=== PATIENT | female | born 1975 | race Caucasian/White ===

== ENCOUNTER 2025-03-11 11:28 | Inpatient (IN) | payer OTHER ==
[~2025-03-11] VITALS: Ht 157.5 cm; Wt 100.2 kg
--- NOTE | 2025-03-11 12:02 | RADIOLOGY REPORT ---
CHEST RADIOGRAPH Indication: CELLULITIS Technique: Single frontal view of the chest was obtained Comparison: None FINDINGS: Lines and Tubes: None Lungs: No focal consolidation. Pleura: No effusion. No pneumothorax. Cardiomediastinal contours: Unremarkable Bones: No acute osseous abnormality. IMPRESSION: No acute cardiopulmonary disease.
[2025-03-11 12:22] LABS: MEAN PLATELET VOLUME 7.5 FL (7.4-10.4); RED CELL DISTRIBUTION WIDTH 16.0 % (11.5-14.5)
[2025-03-11 12:23] LABS: LEUKOCYTE ESTERASE ,URINE NEGATIVE (Neg); NITRITES, URINE NEGATIVE (Neg); OCCULT BLOOD,URINE NEGATIVE (Neg)
[2025-03-11 12:27] LABS: UA COLLECTION TYPE CLN CATCH MIDSTREAM
[2025-03-11 12:29] LABS: SQUAMOUS EPITHELIAL CELL,UR NONE SEEN /LPF (FEW)
[2025-03-11 12:38] LABS: CREATININE 1.06 MG/DL (0.40-0.90); PRO BRAIN NATRIURETIC PEPTIDE 196 PG/ML (0-125); TOTAL CARBON DIOXIDE 22.8 MMOL/L (24-32); eCRCL 50 ML/MIN; eGFR 55 ML/MIN
[2025-03-11] MEDS: normal saline 1000ML IV soln IVB ONE (14:18)
--- NOTE | 2025-03-11 14:56 | Physician Documentation ---
History of Present Illness ~ Chief Complaint: Wound Stated Complaint: ANKLE/HIP PAIN Time Seen by MD: 13:27 Mode of Arrival: POV HPI THIS 49-YEAR-OLD FEMALE PRESENTS TO THE ED WITH A COMPLAINT OF LOWER EXTREMITY PAIN, SWELLING AND DEVELOPING INFECTION. THIS IS DEVELOPED OVER THE LAST 2-3 DAYS. SHE STATES THAT SHE DOES HAVE CATS AT HOME BUT IS CERTAIN BUT HER CAT DID NOT SCRATCH HER LOWER EXTREMITY. THIS IS CONCERNING SHE HAS DEVELOPED SOME SMALL ULCERATIONS ON HER RIGHT LOWER EXTREMITY. PATIENT STATES SHE HAS NOT BEEN DIAGNOSED WITH DIABETES AT THIS POINT. SHE SAYS SHE HAS ALWAYS BEEN BORDERLINE. Day of Onset of Wound: Mar 11, 2025 Tetanus within 5 years?: Yes Medication Reconciliation Allergies: Coded Allergies: Penicillins (Verified Allergy, Unknown, RASH, 03/11/25) "RASH ALL OVER LOWER BODY" HAPPENED IN HER 20S Review of Systems All Other Systems at this time: Reviewed and Negative ROS As stated above in the HPI, otherwise all systems are reviewed and negative. Physical Exam Vital Signs: Temperature: 97.4, Source: Temporal, Heart Rate: 66, Respiratory Rate: 15, BP: 160/85, Pulse Oximetry: 95, Weight: 100.250 Physical Exam General: Alert, no apparent distress. HEENT: PERRL, EOMI, no injection, moist mucous membranes. Extremities: Normal range of motion, no deformity. ERYTHEMA SMALL ULCERATIONS WITH RAISED PURULENT SORE PROXIMAL TO ANKLE Neurologic: Oriented x4. Psychiatric: Normal mood and affect. Skin: Normal color, warm and dry. No edema, no ecchymosis. Progress Results/Orders Results/Orders Orders - VINNY WARD CLASSIFICATION CASE MANAGER Culture Blood (03/11/25 11:37) Chest,Single View (03/11/25 11:37) Monitor (03/11/25 11:37) Saline Lock (03/11/25 11:37) Page Hospitalist (03/11/25 ) General Nursing Order (03/11/25 ) Completed Orders - VINNY WARD CLASSIFICATION CASE MANAGER Cbc/Diff (03/11/25 11:37) Chest,Single View (03/11/25 11:37) Procalcitonin (03/11/25 11:37) BMP (03/11/25 11:37) Lacticsepsis (03/11/25 11:37) PBNP (03/11/25 11:37) Ua W/Microscopic, Cult If Ind (03/11/25 11:39) Hgb A1c (03/11/25 11:59) Piperacillin/Tazo 4.5gm/100ml (Zosyn 4.5 (03/11/25 14:10) Vancomycin*Pharmacy To Dose* (Vancomycin (03/11/25 14:10) Normal Saline 1000ml (Sodium Chloride 10 (03/11/25 14:10) Vancomycin/H2o 1.75g/350ml Pb (Vancomyci (03/11/25 14:40) Lactic,2hr (03/11/25 15:00) Medications Received in ER Medications (Trade) Dose Ordered Sig/Berto Route PRN Reason Start Time Stop Time Status Last Admin Dose Admin Piperacillin/ Tazobactam/ Dextrose 100 ml @ 25 mls/hr Q12H IV 03/11/25 14:10 03/11/25 15:33 DC 03/11/25 15:04 25 MLS/HR (sodium chloride 1000ml IV soln) 2,000 ml ONCE ONCE IVB 03/11/25 14:10 03/11/25 14:13 DC 03/11/25 14:18 2,000 ML Vancomycin HCl 350 ml @ 117 mls/hr ONCE ONCE IV 03/11/25 14:40 03/11/25 17:39 DC 03/11/25 15:05 117 MLS/HR Sodium Chloride 1,000 ml @ 100 mls/hr Q10H IV 03/11/25 15:25 03/11/25 15:56 100 MLS/HR Vital Signs 03/11/25 03/11/25 03/11/25 03/11/25 11:30 13:14 13:31 14:00 Temp 97.4 97.4 Pulse 108 66 65 Resp 15 16 15 12 B/P (MAP) 198/122 160/85 (110) 152/84 (106) Pulse Ox 98 95 95 03/11/25 15:00 Pulse 82 Resp 21 B/P (MAP) 168/100 (122) Pulse Ox 97 Laboratory Tests Test 03/11/25 11:39 03/11/25 11:53 03/11/25 11:59 03/11/25 15:29 Urine Specimen Description Cln catch midstream Urine Color Yellow Urine Clarity Clear Urine pH 6.0 Urine Specific [place] 1.015 Urine Protein Negative Urine Glucose (UA) >=1000 H Urine Ketones Trace H Urine Occult Blood Negative Urine Nitrite Negative Urine Bilirubin Negative Urine Urobilinogen 0.2 Urine Leukocyte Esterase Negative Urine RBC None seen Urine WBC 0-4 Urine Squamous Epithelial Cells None seen Urine Bacteria None seen Urine Culture Indicated Not ind Volume Urine Centrifuged 10 ml Urine Comment Lactic Acid Level 4.1 *H 2.9 H White Blood Count 13.3 H Red Blood Count 5.12 Hemoglobin 15.8 Hematocrit 46.0 H Mean Corpuscular Volume 89.9 Mean Corpuscular Hemoglobin 30.8 Mean Corpuscular Hemoglobin Concent 34.3 Red Cell Distribution Width 16.0 H Platelet Count 327 Mean Platelet Volume 7.5 Neutrophils (%) (Auto) 90.6 H Lymphocytes (%) (Auto) 7.2 L Monocytes (%) (Auto) 1.7 L Eosinophils (%) (Auto) 0.2 Basophils (%) (Auto) 0.3 Neutrophils # (Auto) 12.1 H Lymphocytes # (Auto) 1.0 L Monocytes # (Auto) 0.2 Eosinophils # (Auto) 0.0 Basophils # (Auto) 0.0 CBC Comment Sodium Level 137 Potassium Level 4.2 Chloride Level 98 L Carbon Dioxide Level 22.8 L Anion Gap 16 Blood Urea Nitrogen 24 H Creatinine 1.06 H Estimated GFR/1.73 m2 55 BUN/Creatinine Ratio 22.6 H Glucose Level 324 H Hemoglobin A1c 7.9 H Calcium Level 9.6 Pro-B-Type Natriuretic Peptide 196 H Albumin 4.2 Procalcitonin < 0.05 Chemistry Comments Microbiology Date/Time Source Procedure Growth Status 03/11/25 11:59 Blood Arm Right Blood Culture - Preliminary NEGATIVE (LESS THAN 24 HOURS) Resulted Medical Decision Making Findings THIS PATIENT IS LABORATORY VALUES INDICATE UNDIAGNOSED UNCONTROLLED DIABETES COMBINED WITH A DEVELOPING INFECTION. THIS CORRELATES CLINICALLY WITH HER SYMPTOMS. IN ADDITION PATIENT PRESENTED WITH DEHYDRATION EVIDENCED BY HER LACTIC VALUE OVER 4 I GAVE HER A FLUID BOLUS STARTED HER ON IV ANTIBIOTICS AND I AM GOING TO REQUEST HOSPITAL ADMISSION. Differential Dx:Considerations: Include: Abscess, Cellulitis, Dressing change, Healing wound, Other Departure Disposition: ADMITTED INPATIENT Impression: Primary Impression: Wound Additional Impressions: Wound cellulitis Type 2 diabetes mellitus Condition: Stable Discharge Instructions: Skin Abscess Referrals: NO PRIMARY CARE PROVIDER (PCP) Education Educated: Patient Educated regarding: diagnosis Signature Scribe Signature: c Attestation: Scribed for Vinny Ward Np by Vinny Vo NP . 03/11/25 18:23 VINNY WARD NP Mar 11, 2025 14:56
[2025-03-11] MEDS: piperacillin/tazo 4.5gm/100ml 100 ML IV SCH (15:04)
[2025-03-11] MEDS: VANCOMYCIN 1.75GM/WATER FOR INJ (PEG) 350 ML IVPB IV ONE (15:05)
[2025-03-11] MEDS ORDERED: mag hydrox/Alum hydrox/simeth 30ml oral suspension PO PRN (15:25)
[2025-03-11] MEDS ORDERED: magnesium sulf-water 2g/50mL 50 ML IV PRN (15:25)
[2025-03-11] MEDS ORDERED: HYDROcodone/acetaminophen 5mg/325mg tablet PO PRN (15:25)
[2025-03-11] MEDS ORDERED: magnesium Cl slow-release 64mg tablet PO PRN (15:25)
[2025-03-11] MEDS ORDERED: potassium Cl 40MEQ/1/2NS 520ml 520 ML IV PRN (15:25)
[2025-03-11] MEDS ORDERED: potassium Cl 20 mEq SR tablet PO PRN ×2 (15:25)
[2025-03-11] MEDS ORDERED: ondansetron/PF 4mg/2ml inj IV PRN (15:25)
[2025-03-11] MEDS ORDERED: magnesium sulf-water 4G/100mL 100 ML IV PRN (15:25)
[2025-03-11] MEDS ORDERED: glucagon, human recombinant 1mg kit SUBCUT PRN (15:35)
[2025-03-11] MEDS ORDERED: DEXTROSE 15 GM of carb/4 tabs (each vial/BOTTLE has 4 tablets) PO PRN ×2 (15:35)
[2025-03-11] MEDS ORDERED: dextrose 50%-water 50ml dispensing syringe IV PRN ×2 (15:35)
[2025-03-11] MEDS: normal saline 1000ml 1,000 ML IV SCH (15:56)
[2025-03-11] MEDS ORDERED: INSULIN LISPRO 100 UNIT/ML INSULN.PEN MULTI-DOSE SQ SCH ×2 (17:00→18:00)
--- NOTE | 2025-03-11 17:03 | HISTORY AND PHYSICAL-Residence ---
History & Physical Providers to CC Resident Creating Document: ROCÍO ROSADO, RES ~ History of Present Illness Primary Medical Doctor: Marie Díaz SOCIAL WORK ADMINISTRATOR in [place]. Reason for Admit\\Complaint: Bilateral lower extremity swelling and burning. History of Present Illness PCP: Marie Díaz SOCIAL WORK ADMINISTRATOR in [place]. Apron Cleaner: Dr. Wesley De La Cruz. First appointment in July. 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 The patient states that his tried lower extremity started swelling last which has been getting worse until today. Describing a burning sensation and tightness, 7/10 in intensity, without radiation. Last night the patient states that also her left lower extremity started having mild redness and warm sensation. The patient state that last Tuesday at the level of the right ankle she started noticing a whitish blister which she decided to clean and after that she applied triple antibiotic ointment for one time the night. Since yesterday she experienced this redness at the other lower extremity and after evidencing this blister on Tuesday she noticed that other to blisters started developing at the level of the right ankle reason for which she decided to come to the hospital. The patient currently denies any chest pain, shortness of breath, palpitations, urinary or intestinal symptoms Allergies: Coded Allergies: Penicillins (Verified Allergy, Unknown, RASH, 03/11/25) "RASH ALL OVER LOWER BODY" HAPPENED IN HER 20S Past Medical History Past Medical History Panic attack for which she takes Xanax 25 mg as needed. 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 Hypertension taking hydrochlorothiazide 25 mg daily. Chronic hip pain for which she was taking meloxicam 7.5 mg two tablets per day. Prednisolone 40 mg daily since October,. Taking tramadol 50 mg two tablets per day. Chronic back pain: Taking methocarbamol 750 mg three tablets per day. Gabapentin. She endorses weight gain since October, taking now semaglutide 2.5 mg. Depression taking sertraline 50 mg at night. Past Surgical History Surgical History Comment Tonsillectomy. in 1996. Bilateral carpal tunnel surgery. Tonsillectomy. 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 HEENT: Conjunctive are pink, sclerae clear, no icterus, pupil is equal in both sides, reactive to light, no ear discharge, no pharyngeal erythema or an edema. Neck: Supple, no JVD, no lymphadenopathy and thyromegaly. Chest: Equal air entry on both lungs, no additional sounds no rhonchi no wheezing at the moment. Cardiovascular: S1-S2 regular sinus rhythm and, regular rate, no gallops, no rubs, no murmurs Abdomen: No visible peristalsis, Bowel sounds present on auscultation, soft, nontender, no guarding, no rigidity Extremities: No obvious deformities, 1+ pedal edema bilaterally, capillary refill intact, peripheral pulsations are intact on both sides. Presence of redness and three blisters in the level of the right lower extremity. Warm to palpation. Mild redness in the left ankle. Central Nervous System: No focal neurological deficits, no motor or sensory weakness in all 4 extremities, could move all 4 extremities, 2+ deep tendon reflexes, negative Babinski. Musculoskeletal: No joint swelling, deformities, inflammations, and no scoliosis and back tenderness, Mild redness in the left ankle. Skin: Warm and dry. Presence of redness and three blisters in the level of the right lower extremity. Warm to palpation. Diagnostic Data Last Recorded Lab Results: 03/11/25 1159 03/11/25 1159 Counseling Services Smoking & Tobacco Cessation: 3-10 Minutes (I spent 12 minutes discussing smoking cessation with the patient including the risk of continuing to smoke: Lung cancer, stroke, heart attack, poor wound healing, increased in fascial wrinkling, cigarette smoke also leads a foul smell on clothing and fabrics, risk of MRSA skin infections. The expense of smoking cigarettes and how cigarettes have been scientifically engineered to be as addictive as humanly possible. The patient requested nicotine patch.) Advance Care Planning Advanced Care plannin - 30 Minutes (I spent a total of 17 minutes on reviewing various resuscitative measures/ACP with the patient at the time of admission. The patient has decided on a full code status.) Additional Plan Assessment and plan: 49-year-old female patient came to the hospital with chief complaint of bilateral ankle swelling mostly in the right side and presence of whitish pustules. Sepsis secondary to Right lower extremity cellulitis: Sepsis criteria: (HR 108, WBC> 12, presence of source of infection): The patient came to the hospital with chief complaint of bilateral ankle swelling mostly in the right side, presence of whitish blisters in the level of the right ankle. Follow-up ESR, CRP, procalcitonin. Follow-up blood culture. Currently on vancomycin pharmacy to dose. Culturelle 01956 mmu bid. Diabetes mellitus: Hemoglobin A1c 7.9. Glucose levels 324. Hyperglycemia/hypoglycemia protocol in place. On insulin glargine 20 units HS. Medium dose sliding scale short-acting insulin. Possible acute kidney injury likely secondary to vasomotor nephropathy: Creatinine 1.06, GFR 55, BUN/creatinine ratio 22.6. Follow-up urine lytes. On NS at 100 mL/hour. Chronic lumbar back pain: Chronic hip pain: Follow-up x-ray of the hip. Pain control with acetaminophen and [place]. Hypothyroidism: Jamila's disease. Follow-up TSH. Continue Synthroid 137 mcg daily. Code status: Full code DVT prophylaxis: Heparin 5000 units b.i.d. Analgesia/sedation: Acetaminophen/[place]. Line/tube: PIV GI prophylaxis: Protonix Nutrition: 75 carb controlled diet. PT: Ordered Prognosis: Guarded Disposition: The patient will be admitted to ortho floor. Rocío Plascencia Internal Medicine Resident [facility] Date of Service: Mar 11, 2025 Billing Provider: AVINASH ALEJO MD Common Visit Codes: [id number] INP/OBS CARE (HIGH) Secondary Visit Codes: 07851-[id number] CARE PLAN 30 MINUTES ROCÍO ROSADO, RES Mar 11, 2025 17:03 AVINASH ALEJO MD Mar 12, 2025 14:05
[2025-03-11] MEDS: nicotine 14mg patch - 24hr TD SCH (17:50)
[2025-03-11] MEDS ORDERED: POTA-366 PO (18:25)
[2025-03-11] MEDS ORDERED: SERT-433 PO (18:25)
[2025-03-11] MEDS ORDERED: METH-798 PO (18:25)
[2025-03-11] MEDS ORDERED: HYDR25TA4 PO (18:25)
[2025-03-11] MEDS ORDERED: vit D (18:25)
[2025-03-11] MEDS ORDERED: TRAM50TA2 PO (18:25)
[2025-03-11] MEDS ORDERED: MELO-100 PO (18:25)
[2025-03-11] MEDS ORDERED: VIT B COMPLEX (18:25)
[2025-03-11] MEDS ORDERED: GABA-530 PO (18:25)
[2025-03-11] MEDS ORDERED: PRED10TA PO (18:25)
[2025-03-11] MEDS ORDERED: LEVO137T24 PO (18:25)
[2025-03-11] MEDS ORDERED: turmeric (18:25)
[2025-03-11] MEDS ORDERED: magnesium (18:25)
--- NOTE | 2025-03-11 18:53 | VASCULAR REPORT ---
Technique: Real-time ultrasound imaging, with color Doppler and compression of the right common femo ral vein, femoral vein, greater saphenous vein, and popliteal vein. Indication: Swelling Comparison: None Findings: Technically limited examination due to habitus. There is normal compressibility and flow augmentation in all of the imaged deep veins. There are no f illing defects. Impression: Technically limited examination due to habitus. Within the limitations: No evidence of DVT in the right lower extremity
[2025-03-11 19:09] LABS: OSMOLALITY 300.0 MOSM/K (280-300)
[2025-03-11 19:20] VITALS: BP 142/77; PULSE 80; RESP 16; TEMP 97.9; O2SAT 97
[2025-03-11] MEDS: K and/or MAG REPLACEMENT MC SCH (20:00)
[2025-03-11] MEDS: insulin glargine (Lantus) pen - multi-dose SQ SCH (21:28)
[2025-03-11] MEDS: lactobacillus rhamnosus 10,000 MMU CELLS/CAPSULE PO SCH (21:47)
[2025-03-11] MEDS: heparin, porcine 5000 units/ml vial SQ SCH (21:47)
[2025-03-11] MEDS: INSULIN LISPRO 100 UNIT/ML INSULN.PEN MULTI-DOSE SQ SCH (21:57)
[2025-03-11 22:00] VITALS: BP 145/67; PULSE 77; RESP 16; TEMP 97.6; O2SAT 95
[2025-03-11] MEDS: HYDROcodone/acetaminophen 10/325mg tab PO PRN (23:09)
--- NOTE | 2025-03-12 01:25 | RADIOLOGY REPORT ---
CLINICAL INDICATION: RIGHT HIP PAIN TECHNIQUE: DI HIP UNILATERAL 2 VIEWS Comparison: None FINDINGS/IMPRESSION: : There is no evidence of acute fracture or dislocation. Soft tissues are unremarkable.
[2025-03-12] MEDS: VANCOmycin 1250MG/NS 250ml Bag 250 ML IV SCH (03:25)
[2025-03-12 05:40] LABS: MEAN PLATELET VOLUME 7.5 FL (7.4-10.4); RED CELL DISTRIBUTION WIDTH 16.2 % (11.5-14.5)
[2025-03-12 05:56] LABS: CREATININE 1.00 MG/DL (0.40-0.90); PHOSPHORUS 3.5 MG/DL (2.3-4.5); TOTAL CARBON DIOXIDE 22.6 MMOL/L (24-32); eCRCL 53 ML/MIN; eGFR 59 ML/MIN
[2025-03-12 06:00] VITALS: BP 113/62; PULSE 67; RESP 18; TEMP 96.7; O2SAT 97
[2025-03-12 06:36] LABS: INR 1.0 INR
[2025-03-12] MEDS: pantoprazole 40mg Tablet.DR PO SCH (07:33)
[2025-03-12 07:34] VITALS: BP 131/70; PULSE 62
[2025-03-12 10:00] VITALS: BP 106/68; PULSE 76; RESP 19; TEMP 98.4; O2SAT 97
[2025-03-12] MEDS: Methocarbamol 750 MG TABLET PO SCH (13:00)
--- NOTE | 2025-03-12 17:50 | PROGRESS NOTE- Residence ---
Progress Note - Resident Providers to CC Resident Creating Document: KHOA DONG RES ~ Antibiotic Timeout Antibiotic Ordered?: Yes Subjective Patient was seen and examined at the bedside today. Right leg is wrapped in dressing. Recommended to her to continue to follow up with her primary care regarding her prednisolone dosage. Also recommended to continued follow up with time clock inspector. She continues to feel better. Objective Vital Signs Date Time Temp Pulse Resp B/P (MAP) Pulse Ox O2 Delivery O2 Flow Rate FiO2 03/12/25 15:21 75 03/12/25 10:00 98.4 19 106/68 (81) 97 Room Air Result Diagram: 03/12/25 0448 03/12/25 0448 General: Well alert, well oriented, not confused, not agitated, not in acute distress, well cooperated during the physical. HEENT: Conjunctive are pink, sclerae clear, no icterus, pupil is equal in both sides, reactive to light, no ear discharge, no pharyngeal erythema or an edema. Neck: Supple, no JVD, no lymphadenopathy and thyromegaly. Chest: Equal air entry on both lungs, no additional sounds no rhonchi no wheezing at the moment. Cardiovascular: S1-S2 regular sinus rhythm and, regular rate, no gallops, no rubs, no murmurs Abdomen: No visible peristalsis, Bowel sounds present on auscultation, soft, nontender, no guarding, no rigidity Extremities: No obvious deformities, 1+ pedal edema bilaterally, capillary refill intact, peripheral pulsations are intact on both sides. Presence of redness and three blisters in the level of the right lower extremity. Warm to palpation. Mild redness in the left ankle. Central Nervous System: No focal neurological deficits, no motor or sensory weakness in all 4 extremities, could move all 4 extremities, 2+ deep tendon reflexes, negative Babinski. Musculoskeletal: No joint swelling, deformities, inflammations, and no scoliosis and back tenderness, Mild redness in the left ankle. Skin: Warm and dry. Presence of redness and three blisters in the level of the right lower extremity. Warm to palpation. Coagulation Studies Laboratory Tests Test 03/12/25 04:48 Prothrombin Time 10.5 SECONDS (9.0-12.0) INR International Normalized Ratio 1.0 INR Coagulation Comments Plan Plan 49-year-old female patient came to the hospital with chief complaint of bilateral ankle swelling mostly in the right side and presence of whitish pustules. Sepsis secondary to Right lower extremity cellulitis: Sepsis criteria: (HR 108, WBC> 12, presence of source of infection): The patient came to the hospital with chief complaint of bilateral ankle swelling mostly in the right side, presence of whitish blisters in the level of the right ankle. Follow-up ESR, CRP, procalcitonin. Follow-up blood culture. Currently on vancomycin pharmacy to dose. Culturelle 13096 mmu bid. 03/12/2025 Antibiotic changed doxycycline. WBC count trending high up to 16.9 likely secondary to prednisolone. Lactic acid trended down. Decreased the dosage of prednisolone to 20 mg. Diabetes mellitus: Hemoglobin A1c 7.9. Glucose levels 324. Hyperglycemia/hypoglycemia protocol in place. On insulin glargine 20 units HS. Medium dose sliding scale short-acting insulin. 03/12/2025 Patient is a new diabetic, will be discharged home on metformin. Possible acute kidney injury likely secondary to vasomotor nephropathy: Creatinine 1.06, GFR 55, BUN/creatinine ratio 22.6. Follow-up urine lytes. On NS at 100 mL/hour. 03/12/2025-creatinine improving Chronic lumbar back pain: Chronic hip pain: Follow-up x-ray of the hip. Pain control with acetaminophen and [place]. 03/12/2025-hip x-ray shows no acute fractures. Hypothyroidism: Jamila's disease. Follow-up TSH. Continue Synthroid 137 mcg daily. Code status: Full code DVT prophylaxis: Heparin 5000 units b.i.d. Analgesia/sedation: Acetaminophen/[place]. Line/tube: PIV GI prophylaxis: Protonix Nutrition: 75 carb controlled diet. PT: Ordered Prognosis: Guarded Disposition: Patient is doing fine, possible discharge tomorrow with oral antibiotics. Khoa Dong M.D PGY2 Date of Service: Mar 12, 2025 Billing Provider: AVINASH ALEJO MD Common Visit Codes: [id number] INP/OBS CARE(HIGH) KHOA DONG, RES Mar 12, 2025 17:50 AVINASH ALEJO MD Mar 13, 2025 17:39
[2025-03-12] MEDS: doxycycline 100mg/NS 100mL PB 100 ML IV SCH (20:07)
[2025-03-13] MEDS ORDERED: VANCOMYCIN LEVEL IV ONE (03:00)
[2025-03-13 06:00] VITALS: BP 135/77; PULSE 76; RESP 15; TEMP 96.9; O2SAT 98
[2025-03-13 06:08] LABS: MEAN PLATELET VOLUME 7.4 FL (7.4-10.4); RED CELL DISTRIBUTION WIDTH 16.4 % (11.5-14.5)
[2025-03-13 06:40] LABS: CREATININE 0.79 MG/DL (0.40-0.90); PHOSPHORUS 4.0 MG/DL (2.3-4.5); TOTAL CARBON DIOXIDE 28.2 MMOL/L (24-32); eCRCL 67 ML/MIN; eGFR 77 ML/MIN
[2025-03-13] MEDS: levoTHYROXINE 25mcg tablet PO SCH (07:32)
[2025-03-13] MEDS: levoTHYROXINE 112mcg tablet PO SCH (07:32)
[2025-03-13] MEDS: potassium Cl 20 mEq SR tablet PO SCH (07:39)
[2025-03-13] MEDS ORDERED: PRED10TA PO (09:35)
[2025-03-13] MEDS ORDERED: DOXY-243 PO (09:35)
[2025-03-13 10:00] VITALS: BP 123/69; PULSE 77; RESP 18; TEMP 96.6; O2SAT 99
[2025-03-13] MEDS ORDERED: METF-1203 PO (10:55)
--- NOTE | 2025-03-13 16:08 | DISCHARGE SUMMARY-Residence ---
Discharge Summary Providers to Resident Creating Document: KHOA BARRAZA, ROXY ~ Discharge Summary Admission Diagnosis: CELLULITIS Hospital Course DATE OF ADMISSION: 03/11/2025 DATE OF DISCHARGE: 03/13/25 Labs at the time of discharge WBC 11.5 Hemoglobin 13.7 Sodium 145 Potassium 4.0 Creatinine 0.79 BUN 15 Vascular ultrasound No evidence of DVT in the right lower extremity Hip x-ray There is no evidence of acute fracture or dislocation. Soft tissues are unremarkable. Discharge Diagnosis\Comment: Sepsis secondary to right lower extremity cellulitis Diabetes mellitus JESSY secondary to vasomotor nephropathy Chronic lumbar back pain Hypothyroidism Operations\Procedures: None Consultants: None Complications: None Condition on DC: Stable New Medications: Doxycycline Hyclate (Doxycycline Hyclate) 100 Mg Tablet.dr 100 MG PO BID for 7 Days, #14 TAB Metformin HCl (Metformin HCl) 500 Mg Tablet 1 TAB PO BID for 30 Days, #60 TAB Prednisone (Prednisone) 10 Mg Tablet 20 MG PO DAILY for 14 Days, #28 TAB Continued Medications: Gabapentin (Gabapentin) 100 Mg Capsule 1 CAP PO TID Hydrochlorothiazide (Hydrochlorothiazide) 25 Mg Tablet 1 TAB PO DAILY Levothyroxine Sodium (Synthroid) 137 Mcg Tablet 1 TAB PO DAILY [magnesium] () Meloxicam* (Meloxicam*) 7.5 Mg Tablet 1 TAB PO BID Methocarbamol (Methocarbamol) 750 Mg Tablet 1 TAB PO TID Potassium Chloride (Potassium Chloride) 20 Meq Tablet.er 1 TAB PO DAILY Sertraline HCl (Sertraline HCl) 50 Mg Tablet 1 TAB PO DAILY Tramadol Hcl (Tramadol Hcl) 50 Mg Tablet 1 TAB PO BID PRN for pain [turmeric] () [vit B complex] () [vit D] () Discontinued Medications: Prednisone (Prednisone) 10 Mg Tablet 40 MG PO DAILY Discharge Summary: 49 years old female patient with past medical history of panic attack, Jamila's disease, diabetes mellitus, chronic hip pain, came to the hospital with chief complaint of bilateral lower extremity swelling and burning. She also mentioned that her left lower extremity started having mild redness and warm sensation. She also noticed a whitish blisters on the right lower extremity. She denied any fever. She had positive SIRS criteria with tachycardia and WBC>12. She was started on vancomycin. Blood cultures negative Later antibiotic changed to doxycycline. Also had mild JESSY secondary to vasomotor nephropathy, improved with IV fluids. A1c was 7.9, placed on Lantus 20 units, insulin protocol. Complained of clonic hip pain, x-ray of the hip was done which showed no acute fractures. Continued home medication Synthroid for hypothyroidism. Patient is stable enough to be discharged. At the time of discharge had the following physical examination findings General: Well alert, well oriented, not confused, not agitated, not in acute distress, well cooperated during the physical. HEENT: Conjunctive are pink, sclerae clear, no icterus, pupil is equal in both sides, reactive to light, no ear discharge, no pharyngeal erythema or an edema. Neck: Supple, no JVD, no lymphadenopathy and thyromegaly. Chest: Equal air entry on both lungs, no additional sounds no rhonchi no wheezing at the moment. Cardiovascular: S1-S2 regular sinus rhythm and, regular rate, no gallops, no rubs, no murmurs Abdomen: No visible peristalsis, Bowel sounds present on auscultation, soft, nontender, no guarding, no rigidity Extremities: No obvious deformities, 1+ pedal edema bilaterally, capillary refill intact, peripheral pulsations are intact on both sides. Presence of redness and three blisters in the level of the right lower extremity. Warm to palpation. Mild redness in the left ankle. Central Nervous System: No focal neurological deficits, no motor or sensory weakness in all 4 extremities, could move all 4 extremities, 2+ deep tendon reflexes, negative Babinski. Musculoskeletal: No joint swelling, deformities, inflammations, and no scoliosis and back tenderness, Mild redness in the left ankle. Skin: Warm and dry. Wound dressing done on right lower extremity. Follow up with PCP in 2 weeks. Discuss about diabetes and prednisone dosage with primary care. Continue to monitor blood pressure. Continue wound care of right leg Call 911 or return to ER in case of increase pain, fever or pus discharge *Problems/Diagnosis: (1) Type 2 diabetes mellitus Status: Acute (2) Wound cellulitis Status: Acute Total Time Spent on D/C: Up to 30 Minutes Date of Service: Mar 13, 2025 Billing Provider: AVINASH ALEJO MD Common Visit Codes: [id number] DISCH DAY >30min KHOA BARRAZA, RES Mar 13, 2025 15:48 AVINASH ALEJO MD Mar 13, 2025 17:40
== END 2025-03-13 11:40 | disposition home or self-care (01) | DRG 871 ==
LOC: ER 11:29 → ED HOLD 15:31 → ORTHO 4S 19:02
PROVIDERS: ADMIT Internal Medicine; ATTEND Internal Medicine
DX: A41.9 Sepsis, unspecified organism (principal); N17.0 Acute kidney failure with tubular necrosis; L03.115 Cellulitis of right lower limb; E11.9 Type 2 diabetes mellitus without complications; I10 Essential (primary) hypertension; E03.9 Hypothyroidism, unspecified; G89.29 Other chronic pain; M54.59 Other low back pain; S81.801A Unspecified open wound, right lower leg, initial encounter; X58.XXXA Exposure to other specified factors, initial encounter; Z88.0 Allergy status to penicillin; Y93.89 Activity, other specified; Y92.89 Other specified places as the place of occurrence of the external cause; Y99.8 Other external cause status
CPT/HCPCS: 36415; 71045; 73502; 80048; 81001; 82948; 83036; 83605; 83735; 83880; 83930; 84100; 84145; 84443; 85025; 85610; 85651; 86140; 87040; 87081; 93971; 96365; 97161; 97530; 99285; A4421; A6196; A6260; A6446; A6449; G0378; J1200; J1271; J1644; J1815; J2543; J3370; J3372; J7030; J7512

== ENCOUNTER 2025-04-18 15:54 | Emergency (ER) | payer OTHER ==
[~2025-04-18] VITALS: Ht 152.4 cm; Wt 113.6 kg
[~2025-04-18 15:54] MED LIST: GABA-530 PO; HYDR25TA4 PO; LEVO137T24 PO; MELO-100 PO; METH-798 PO; POTA-366 PO; PRED10TA PO; SERT-433 PO; TRAM50TA2 PO; VIT B COMPLEX; magnesium; turmeric; vit D
--- NOTE | 2025-04-18 18:05 | Physician Documentation ---
History of Present Illness ~ Chief Complaint: Hip pain Stated Complaint: "CAN'T WALK" Time Seen by MD: 00:16 Primary Medical Doctor: Marie Díaz SENIOR MARKETING ENGINEER in [place]. HPI Patient is a 49-year-old female that reports to the emergency department for evaluation of chronic right-sided hip pain. Patient denies any injury reports a hip pain means become progressive over the last several weeks. Patient reports sharp pain into her right hip. denies any red flag symptoms including numbness tingling saddle anesthesia or fevers Medication Reconciliation Allergies: Coded Allergies: Penicillins (Verified Allergy, Unknown, RASH, 04/18/25) "RASH ALL OVER LOWER BODY" HAPPENED IN HER 20S Scheduled Gabapentin (Gabapentin), 1 CAP PO TID, (Reported) Gabapentin (Neurontin), 1 CAP PO Q8H Hydrochlorothiazide (Hydrochlorothiazide), 1 TAB PO DAILY, (Reported) Levothyroxine Sodium (Synthroid), 1 TAB PO DAILY, (Reported) Meloxicam* (Meloxicam*), 1 TAB PO BID, (Reported) Methocarbamol (Methocarbamol), 1 TAB PO TID, (Reported) Potassium Chloride (Potassium Chloride), 1 TAB PO DAILY, (Reported) Prednisone (Prednisone), 20 MG PO DAILY Sertraline HCl (Sertraline HCl), 1 TAB PO DAILY, (Reported) Scheduled PRN Hydrocodone Bit/Acetaminophen 5/325 MG ([place] 5/325 MG), 1 TAB PO Q6H PRN for pain Tramadol Hcl (Tramadol Hcl), 1 TAB PO BID PRN for pain, (Reported) Miscellaneous Medications [magnesium], (Reported) [turmeric], (Reported) [vit B complex], (Reported) [vit D], (Reported) Discontinued Medications Metformin HCl (Metformin HCl), 1 TAB PO BID Discontinued Reason: Auto Discontinued Past Medical History Patient History: FH: arthritis FATHER FH: diabetes mellitus MOTHER FH: hypertension MOTHER FH: rheumatoid arthritis MOTHER Alcohol Use: None Drug Use: none Lives with: Spouse Lives In: Home Occupation: employed Review of Systems All Other Systems at this time: Reviewed and Negative ROS As stated above in the HPI, otherwise all systems are reviewed and negative. Physical Exam Vital Signs: Temperature: 97.5, Source: Temporal, Heart Rate: 106, Respiratory Rate: 18, BP: 149/86, Pulse Oximetry: 96, Weight: 113.640 Oxygen Flow Rate: 0 Physical Exam General: Alert, no apparent distress. musckuloskeletal: tender to the lumbar region via palpation. unable to complete full physical exam due to pain in Pt's right hip Cardiovascular: Regular rate and rhythm, no murmurs. Gastrointestinal: Soft, nontender, nondistended. Bowels sounds present. Extremities: Normal range of motion, no deformity. Neurologic: Oriented x4. Psychiatric: Normal mood and affect. Progress Results/Orders Results/Orders Completed Orders - VINNY FAULKNER SENIOR MARKETING ENGINEER Hydrocodone/Apap 10/325 ([place] 10/325mg (04/18/25 21:20) Morphine 4mg/Ml Inj. (Morphine Inj.) (04/19/25 00:20) Diazepam Tablet (Valium Tablet) (04/19/25 00:20) Vital Signs 04/18/25 04/18/25 04/18/25 04/18/25 16:35 19:41 21:23 21:27 Temp 97.5 97.5 Pulse 106 118 87 Resp 18 16 16 18 B/P (MAP) 149/86 121/89 (100) 125/87 (100) Pulse Ox 96 94 O2 Flow Rate 0 0 0 04/18/25 04/19/25 04/19/25 22:59 00:48 00:54 Temp 97.5 Resp 16 22 B/P (MAP) Medical Decision Making Findings Patient does not present with any acute injury she has been evaluated fully in the outpatient setting. She came to the ER primarily for muscle spasm and pain management. I discussed with her that she needs to follow up with the primary care in order to obtain a referral to pain management clinic and to get a referral to go to physical therapy which she will likely benefit from. While here I treated her for pain . Seemed reassured when I made suggestions for other modalities of medical treatment as recommended Differential Dx:Considerations: Include: Avascular necrosis, Arthritis, Arthritis-Rheumatoid, Arthritis-Septic, Bursitis, Contusion, Dislocation, DJD, Fracture-femur, Fracture-hip, Fracture-open, Fracture-pelvis, Gout, Hernia, Eoqe-Vaate-qohmabl dz., Neurovascular injury, Slip capital femoral epip, Sprain, Transient synovitis, Other Departure Disposition: HOME / SELF CARE / HOMELESS Impression: Primary Impression: Hip pain Additional Impression: Lumbago Condition: Improved Referrals: NO PRIMARY CARE PROVIDER (PCP) Prescriptions Hydrocodone Bit/Acetaminophen 5/325 MG ([place] 5/325 MG) 5 Mg/325 Mg Tablet 1 TAB PO Q6H PRN for pain, #14 TAB Prov: VINNY FAULKNER NP 04/19/25 Gabapentin (Neurontin) 300 Mg Capsule 1 CAP PO Q8H for 30 Days, #90 CAP 0 Refills Prov: VINNY FAULKNER NP 04/19/25 Signature Scribe Signature: e Attestation: Scribed for Vinny Faulkner Can Filling Room Sweeper by Vinny Vo NP . 04/19/25 00:21 ELA DOVER DYE REEL OPERATOR Apr 18, 2025 18:05 VINNY FAULKNER NP Apr 19, 2025 00:24
--- NOTE | 2025-04-18 19:07 | RADIOLOGY REPORT ---
EXAMINATIONS: AP pelvis with 2 views of the right hip CLINICAL HISTORY: Pain RIGHT COMPARISON: DI HIP UNILATERAL 2 VIEWS on DOS: 03/11/25 Findings and impression: Evaluation somewhat limited by relative underpenetration. As visualized, no grossly displaced fractures or dislocations are evident on the provided views. Severe joint space narrowing at the left hip is again noted. If symptoms persist, follow-up MRI may be considered to further evaluate.
[2025-04-18 21:23] VITALS: BP 125/87; PULSE 87; O2SAT 94
[2025-04-18] MEDS: HYDROcodone/acetaminophen 10/325mg tab PO ONE (21:27)
[2025-04-19] MEDS ORDERED: GABA300C PO (00:20)
[2025-04-19] MEDS ORDERED: HYDR-3965 PO (00:20)
[2025-04-19 00:48] VITALS: TEMP 97.5
[2025-04-19 00:54] VITALS: RESP 22
[2025-04-19] MEDS: morphine 4 MG/ML inj SYRINge IM ONE (00:54)
== END 2025-04-19 00:59 | disposition home or self-care (01) ==
LOC: ER 15:55
DX: M25.551 Pain in right hip (principal); M54.50 Low back pain, unspecified; Z88.0 Allergy status to penicillin
CPT/HCPCS: 73502; 96372; 99283; J2270